=== PATIENT | female | born 1960 | race Caucasian/White ===

== ENCOUNTER 2020-11-24 20:02 | Observation (INO) | payer OTHER ==
[2020-11-24 20:11] VITALS: BMI 29.2
[2020-11-25] MEDS ORDERED: IBUPROFEN 600 MG TABLET (FP) PO ONE ×2 (01:37→01:39)
[2020-11-25] MEDS ORDERED: morphine SULFATE 4 MG/ML VIAL IVPUSH ONE (03:53)
[2020-11-25] MEDS ORDERED: morphine SULFATE 4 MG/ML VIAL ONE (04:04)
[2020-11-25 04:26] LABS: BASO % 0.9 % (0-2.0); EOS % 2.7 % (0-4.5); HEMATOCRIT 43.9 % (32.4-45.2); HEMOGLOBIN 14.9 GM/dL (10.7-15.3); MCH 29.3 pg (25.7-33.7); MCHC 33.9 g/dl (32.0-36.0); MEAN CELL VOLUME 86.6 fl (80-96); MEAN PLT VOLUME 7.6 fl (7.5-11.1); MONO % 7.9 % (3.8-10.2); NEUT % 39.5 % (42.8-82.8); PLATELET COUNT 214 10^3/uL (134-434); RBC 5.07 M/mm3 (3.60-5.2); RDW 14.4 % (11.6-15.6); WHITE BLOOD COUNT 5.8 K/mm3 (4.0-10.0)
[2020-11-25 04:43] LABS: CHLORIDE 108 mmol/L (98-107); SODIUM 141 mmol/L (136-145)
[2020-11-25 04:46] LABS: ALBUMIN 3.4 g/dl (3.4-5.0); ANION GAP 8 MMOL/L (8-16); BLOOD UREA NITROGEN 19.5 mg/dL (7-18); CALCIUM 8.4 mg/dL (8.5-10.1); CO2 25 mmol/L (21-32); GLUCOSE,RANDOM 143 mg/dL (74-106)
[2020-11-25 04:49] LABS: CREATININE 0.8 mg/dL (0.55-1.3); SGOT/AST 48 U/L (15-37); SGPT/ALT 58 U/L (13-61)
[2020-11-25 04:51] LABS: BILIRUBIN,TOTAL 0.4 mg/dL (0.2-1); TOT PROT 7.6 g/dl (6.4-8.2)
[2020-11-25 04:52] LABS: ALK PHOS 101 U/L (45-117)
[2020-11-25] MEDS ORDERED: amLODIPine BESYLATE 10 MG TABLET (FP) PO ONE (08:42)
[2020-11-25] MEDS ORDERED: morphine CARPU-JECT 2 MG/1 ML DISP.SYRIN IVPUSH ONE (08:57)
[2020-11-25] MEDS ORDERED: ACETAMINOPHEN 1000 MG/100 ML VIAL (NON FORMULARY) IVPB ONE (08:58)
[2020-11-25] MEDS ORDERED: amLODIPine BESYLATE 5 MG TABLET (FP) ONE (09:01)
[2020-11-25] MEDS ORDERED: ACETAMINOPHEN INJECTION 100 ML IVPB ONE (09:01)
[2020-11-25] MEDS ORDERED: MORPHINE SULFATE 2 MG/ML VIAL ONE (09:01)
[2020-11-25] MEDS ORDERED: morphine CARPU-JECT 4 MG/1 ML DISP.SYRIN IVPUSH PRN (09:27)
[2020-11-25] MEDS ORDERED: MORPHINE SULFATE 2 MG/ML VIAL IVPUSH PRN (09:47)
[2020-11-25] MEDS ORDERED: ENOXAPARIN NA (PORCINE) 40 MG/0.4 ML DISP.SYRIN SQ ONE (10:00)
[2020-11-25] MEDS: ENOXAPARIN NA (PORCINE) 40 MG/0.4 ML DISP.SYRIN SQ SCH (10:05)
[2020-11-25] MEDS ORDERED: ACETAMINOPHEN 1000 MG/100 ML VIAL (NON FORMULARY) IVPB PRN (15:00)
[2020-11-25] MEDS: PANTOPRAZOLE SOD 40 MG SUSPENSION PACKET PO SCH (21:03)
[2020-11-25] MEDS: NAPROXEN 500 MG TABLET PO SCH (21:40)
[2020-11-26] MEDS ORDERED: LISINOPRIL 5 MG TABLET PO ONE (02:51)
[2020-11-26 08:54] LABS: BASO % 0.8 % (0-2.0); EOS % 3.4 % (0-4.5); HEMATOCRIT 43.1 % (32.4-45.2); HEMOGLOBIN 14.8 GM/dL (10.7-15.3); LYMPH % 51.8 % (8-40); MCH 29.7 pg (25.7-33.7); MCHC 34.4 g/dl (32.0-36.0); MEAN CELL VOLUME 86.5 fl (80-96); MEAN PLT VOLUME 7.5 fl (7.5-11.1); MONO % 9.5 % (3.8-10.2); NEUT % 34.5 % (42.8-82.8); PLATELET COUNT 196 10^3/uL (134-434); RBC 4.98 M/mm3 (3.60-5.2); RDW 14.3 % (11.6-15.6); WHITE BLOOD COUNT 4.6 K/mm3 (4.0-10.0)
[2020-11-26 09:28] LABS: CALCIUM 8.6 mg/dL (8.5-10.1)
[2020-11-26 09:29] LABS: BLOOD UREA NITROGEN 17.9 mg/dL (7-18); MAGNESIUM 2.5 mg/dL (1.8-2.4)
[2020-11-26] MEDS ORDERED: PT OWN MED DRAWER 7, Y5N ONE (09:31)
[2020-11-26 09:32] LABS: CREATININE 0.8 mg/dL (0.55-1.3)
[2020-11-26] MEDS: ENOXAPARIN NA (PORCINE) 40 MG/0.4 ML DISP.SYRIN SQ SCH (09:41)
[2020-11-26] MEDS: PANTOPRAZOLE SOD 40 MG SUSPENSION PACKET PO SCH (09:41)
[2020-11-26] MEDS: NAPROXEN 500 MG TABLET PO SCH (09:41)
[2020-11-26 15:49] VITALS: BP 157/68; PULSE 64; TEMP 98.3
[2020-11-26] MEDS ORDERED: ACETAMINOPHEN 500 MG TABLET (FP) PO PRN (16:09)
== END 2020-11-26 18:21 | disposition home or self-care (01) ==
LOC: JER 20:02 → UNDOADMOB 11-25 09:41 → JERBED 11-25 09:41 → INTOOBSV 11-25 09:41 → JERBED 11-25 12:27 → J5S 11-25 12:27 → JERBED 11-25 15:25 → J5S 11-25 15:25
PROVIDERS: ATTEND Internal Medicine
PROC: 3E033NZ Introduction of Analgesics, Hypnotics, Sedatives into Peripheral Vein, Percutaneous Approach (ICD-10-PCS; principal; 2020-11-25)
PROC: 3E023GC Introduction of Other Therapeutic Substance into Muscle, Percutaneous Approach (ICD-10-PCS; 2020-11-25)
PROC: 3E033NZ Introduction of Analgesics, Hypnotics, Sedatives into Peripheral Vein, Percutaneous Approach (ICD-10-PCS; 2020-11-25)
DX: M25.551 Pain in right hip (principal); M25.561 Pain in right knee; Z29.9 Encounter for prophylactic measures, unspecified; M54.5 Low back pain; I10 Essential (primary) hypertension; W10.9XXA Fall (on) (from) unspecified stairs and steps, initial encounter; Y93.89 Activity, other specified; Y92.008 Other place in unspecified non-institutional (private) residence as the place of occurrence of the external cause
CPT/HCPCS: 36415; 70450-TC; 71046-TC-FY; 71260-TC; 72125-TC; 72148-TC; 72170-TC-FY; 73070-TC-RT-FY; 73130-TC-LT-FY; 73552-TC-RT-FY; 73562-TC-RT-FY; 74177-TC; 80048; 80053; 82550; 83735; 84484; 85025; 93005; 93010; 96372; 96374; 96375; 96376; 97116-GP; 97162-GP; 99285-25; C9803; G0378; J0131; U0003; U0005